=== PATIENT | male | born 1960 | race African-American/Black ===

== ENCOUNTER 2019-09-21 16:52 | Emergency (ER) | payer SELFPAY, OTHER ==
[2019-09-22 14:06] LABS: SARS-CoV-2 MS2 Positive; SARS-CoV-2 N Gene Positive; SARS-CoV-2 S Gene Positive; SARS-CoV-2 orf1ab Positive
== END 2019-09-21 17:14 | disposition home or self-care (01) ==
LOC: ERS 16:52
DX: U07.1 COVID-19 (principal); R50.9 Fever, unspecified
CPT/HCPCS: 87635; 99283; U0003

== ENCOUNTER 2019-09-25 19:08 | Emergency (ER) | payer OTHER, SELFPAY ==
[~2019-09-25 19:08] MED LIST: Iopamidol-370 76% 500 ML 1 ML ONE
--- NOTE | 2019-09-25 20:14 | RAD ---
PORTABLE CHEST ONE VIEW: 09/25/19 at 7:23 p.m. HISTORY: Chest pain. FINDINGS: Comparison made with exam of 09/22/15. The heart size is normal. No focal areas of consolidation, pneumothoraces, or pleural effusions are s een. IMPRESSION: No acute process. POS: [facility]
[2019-09-25 20:23] LABS: #Lymphocytes 1.4 thou/uL (1.20-3.40); #Monocytes 0.6 thou/uL (0.11-0.59); #Neutrophils 5.6 thou/uL (1.40-6.50); %Basophils 0.4 % (0.0-1.0); %Eosinophils 0.1 % (0.0-10.0); %Lymphocytes 18.6 % (21.0-51.0); %Monocytes 7.7 % (0.0-10.0); %Neutrophils 73.2 % (42.0-75.0); Hemoglobin 16.4 g/dL (14.0-18.0); Mean Corpuscular HGB CONC 32.9 g/dL (32.0-36.0); Mean Corpuscular Hemoglobin 28.4 pg (27.0-31.0); Mean Corpuscular Volume 86.2 fL (78.0-98.0); RBC Distribution Width 12.2 % (11.5-14.5); Red Blood Cell (RBC) Count 5.78 mill/uL (4.70-6.10); White Blood Cell (WBC) Count 7.6 thou/uL (4.8-10.8)
[2019-09-25] MEDS ORDERED: Acetaminophen 500 MG TAB ONE (20:28)
[2019-09-25] MEDS ORDERED: Morphine 4 MG/ML VIAL ONE (20:28)
[2019-09-25] MEDS ORDERED: Ketorolac Tromethamine 30 MG/ML VIAL ONE (20:28)
[2019-09-25 20:37] LABS: ALT (SGPT) 40 U/L (8-55); AST (SGOT) 43 U/L (5-34); Albumin 3.8 g/dL (3.5-5.0); Alkaline Phosphatase 62 U/L (40-110); Anion Gap 13 mmol/L (10-20); BUN (Urea Nitrogen) 9 mg/dL (8.4-25.7); Bilirubin, Total 0.8 mg/dL (0.2-1.2); Calc. Creatinine Clearance 0 mL/min (70-130); Calcium 8.5 mg/dL (7.8-10.44); Carbon Dioxide 25 mmol/L (22-29); Chloride 101 mmol/L (98-107); Estimated GFR-MDRD Greater than 90; Globulin 4.1 g/dL (2.4-3.5); Glucose 105 mg/dL (70-105); Lipase 23 U/L (8-78); Potassium 3.8 mmol/L (3.5-5.1); Protein, Total 7.9 g/dL (6.0-8.3); Sodium 135 mmol/L (136-145)
[2019-09-25 20:43] LABS: Platelet Count 118 thou/uL (130-400); Platelet Morphology Comment Appears Decreased
[2019-09-25 21:03] LABS: CKMB 0.2 ng/mL (0-6.6)
--- NOTE | 2019-09-25 21:19 | CT ---
CT Abdomen Pelvis W Con HISTORY: Right lower quadrant abdominal pain and fever.COVID-19 Positive FINDINGS: There are dependent changes in the lung bases. No calcified gallstones are seen. The liver, spleen, p ancreas, adrenal glands and kidneys are normal. A small hiatal hernia is present. No free air, free fluid or lymphadenopathy seen in the abdomen or pelvis. There are vascular calcific ations without evidence of aneurysmal dilatation of the abdominal aorta. There are degenerative changes in the spine. The small bowel loops are not abnormally dilated. A normal-appearing appendix is present. There are s mall bilateral fat-containing inguinal hernia. A small fat-containing umbilical hernia is also seen. IMPRESSION: No evidence of acute process.
[2019-09-25 22:46] LABS: Troponin I Less than 0.010 ng/mL (< 0.028)
== END 2019-09-25 23:25 | disposition home or self-care (01) ==
LOC: ERS 19:08
DX: U07.1 COVID-19 (principal); R07.9 Chest pain, unspecified; R10.813 Right lower quadrant abdominal tenderness
CPT/HCPCS: 36415; 71045; 74177; 80053; 82553; 83605; 83690; 84484; 85025; 93005; 96361; 96374; 96375; J1885; J2270; Q9967

== ENCOUNTER 2019-10-07 12:37 | Emergency (ER) | payer OTHER, SELFPAY | END 2019-10-07 13:33 | disposition home or self-care (01) | LOC: ERS 12:37 | DX: U07.1 COVID-19 (principal) | CPT/HCPCS: 99282 ==

== ENCOUNTER 2020-07-03 17:16 | Emergency (ER) | payer OTHER, SELFPAY ==
[2020-07-03] MEDS ORDERED: Proparacaine 0.5% Opth 15 ML BOT ONE (17:41)
[2020-07-03] MEDS ORDERED: Fluorescein Opthalmic Strip ONE (17:42)
[2020-07-03] MEDS ORDERED: HYDROcodone/Acetaminophen 7.5/325 mg Tablet ONE (18:06)
[2020-07-03] MEDS ORDERED: Boostrix 0.5 ML (Tdap) VIAL ONE (18:07)
== END 2020-07-03 18:40 | disposition home or self-care (01) ==
LOC: ERS 17:16
DX: S05.01XA Injury of conjunctiva and corneal abrasion without foreign body, right eye, initial encounter (principal); I10 Essential (primary) hypertension; Z23 Encounter for immunization; W50.0XXA Accidental hit or strike by another person, initial encounter
CPT/HCPCS: 90471; 90715

== ENCOUNTER 2021-02-25 10:15 | Emergency (ER) | payer SELFPAY ==
[2021-02-25 11:52] LABS: Hemoglobin 16.8 g/dL (14.0-18.0); Mean Corpuscular HGB CONC 32.5 g/dL (32.0-36.0); Mean Corpuscular Hemoglobin 29.1 pg (27.0-31.0); Mean Corpuscular Volume 89.5 fL (78.0-98.0); Platelet Count 145 thou/uL (130-400); RBC Distribution Width 12.6 % (11.5-14.5); Red Blood Cell (RBC) Count 5.78 mill/uL (4.70-6.10); White Blood Cell (WBC) Count 10.9 thou/uL (4.8-10.8)
[2021-02-25 11:53] LABS: #Eosinphils 0.1 thou/uL (0.0-0.7); #Lymphocytes 2.8 thou/uL (1.20-3.40); #Monocytes 0.9 thou/uL (0.11-0.59); #Neutrophils 7.1 thou/uL (1.40-6.50); %Basophils 0.4 % (0.0-1.0); %Eosinophils 0.6 % (0.0-10.0); %Monocytes 7.9 % (0.0-10.0); %Neutrophils 65.2 % (42.0-75.0)
[2021-02-25 12:16] LABS: Platelet Morphology Comment Appears Adequate; RBC Morphology Normal
[2021-02-25 12:18] LABS: ALT (SGPT) 33 U/L (8-55); AST (SGOT) 26 U/L (5-34); Alkaline Phosphatase 66 U/L (40-110); Anion Gap 12 mmol/L (10-20); BUN (Urea Nitrogen) 11 mg/dL (8.4-25.7); Bilirubin, Total 1.2 mg/dL (0.2-1.2); Calc. Creatinine Clearance 0 mL/min (70-130); Calcium 9.8 mg/dL (7.8-10.44); Carbon Dioxide 28 mmol/L (22-29); Chloride 103 mmol/L (98-107); Globulin 4.3 g/dL (2.4-3.5); Glucose 109 mg/dL (70-105); Lipase 56 U/L (8-78); Protein, Total 8.3 g/dL (6.0-8.3); Sodium 139 mmol/L (136-145)
[2021-02-25] MEDS ORDERED: Ketorolac Tromethamine 30 MG/ML VIAL ONE (12:32)
== END 2021-02-25 12:54 | disposition home or self-care (01) ==
LOC: ERS 10:15
DX: K43.9 Ventral hernia without obstruction or gangrene (principal); I10 Essential (primary) hypertension
CPT/HCPCS: 80053; 83690; 85025; 96374; J1885

== ENCOUNTER 2021-10-11 06:45 | Emergency (ER) | payer SELFPAY ==
[2021-10-11 08:08] LABS: #Eosinphils 0.2 thou/uL (0.0-0.7); #Lymphocytes 2.3 thou/uL (1.20-3.40); #Monocytes 0.9 thou/uL (0.11-0.59); #Neutrophils 2.9 thou/uL (1.40-6.50); %Basophils 0.3 % (0.0-1.0); %Eosinophils 2.5 % (0.0-10.0); %Lymphocytes 36.8 % (21.0-51.0); %Monocytes 14.7 % (0.0-10.0); %Neutrophils 45.7 % (42.0-75.0); Mean Corpuscular HGB CONC 32.2 g/dL (32.0-36.0); Mean Corpuscular Hemoglobin 29.4 pg (27.0-31.0); Mean Corpuscular Volume 91.2 fL (78.0-98.0); Mean Platelet Volume 8.9 fL (7.4-10.4); Platelet Count 138 thou/uL (130-400); RBC Distribution Width 12.3 % (11.5-14.5); Red Blood Cell (RBC) Count 5.77 mill/uL (4.70-6.10); White Blood Cell (WBC) Count 6.3 thou/uL (4.8-10.8)
[2021-10-11 08:36] LABS: ALT (SGPT) 43 U/L (8-55); AST (SGOT) 43 U/L (5-34); Albumin 3.8 g/dL (3.5-5.0); Alkaline Phosphatase 75 U/L (40-110); Anion Gap 14 mmol/L (10-20); BUN (Urea Nitrogen) 12 mg/dL (8.4-25.7); Bilirubin, Total 0.5 mg/dL (0.2-1.2); Calc. Creatinine Clearance 0 mL/min (70-130); Calcium 8.9 mg/dL (7.8-10.44); Carbon Dioxide 20 mmol/L (22-29); Chloride 108 mmol/L (98-107); Globulin 3.9 g/dL (2.4-3.5); Glucose 104 mg/dL (70-105); Lipase 39 U/L (8-78); Potassium 3.9 mmol/L (3.5-5.1); Protein, Total 7.7 g/dL (6.0-8.3); Sodium 138 mmol/L (136-145)
== END 2021-10-11 09:59 | disposition home or self-care (01) ==
LOC: ERS 06:45
DX: R10.13 Epigastric pain (principal); I10 Essential (primary) hypertension
CPT/HCPCS: 36415; 71045; 80053; 83690; 84484; 85025; 93005

== ENCOUNTER 2022-11-11 14:22 | Emergency (ER) | payer SELFPAY ==
[2022-11-11] MEDS ORDERED: predniSONE 20 MG TAB ONE (15:16)
[2022-11-11] MEDS ORDERED: Ibuprofen 800 MG TAB ONE (15:16)
[2022-11-11] MEDS ORDERED: Cyclobenzaprine 10 MG TAB ONE (15:16)
== END 2022-11-11 17:43 | disposition home or self-care (01) ==
LOC: ERS 14:22
DX: M54.6 Pain in thoracic spine (principal); I10 Essential (primary) hypertension
CPT/HCPCS: 72072; J7512

== ENCOUNTER 2022-12-09 18:49 | Emergency (ER) | payer OTHER, SELFPAY ==
[2022-12-09 19:31] LABS: #Eosinphils 0.1 thou/uL (0.0-0.7); #Monocytes 0.6 thou/uL (0.11-0.59); #Neutrophils 5.8 thou/uL (1.40-6.50); %Basophils 0.3 % (0.0-1.0); %Eosinophils 0.8 % (0.0-10.0); %Lymphocytes 31.9 % (21.0-51.0); %Monocytes 6.3 % (0.0-10.0); %Neutrophils 60.4 % (42.0-75.0); Hematocrit 45.2 % (42.0-52.0); Hemoglobin 14.9 g/dL (14.0-18.0); Mean Corpuscular Volume 88.1 fl (78.0-98.0); Mean Platelet Volume 10.9 fL (7.4-10.4); Platelet Count 153 10x3/uL (130-400); RBC Distribution Width 13.1 % (11.5-14.5); Red Blood Cell (RBC) Count 5.13 mill/uL (4.70-6.10); White Blood Cell (WBC) Count 9.6 10x3/uL (4.8-10.8)
[2022-12-09 19:56] LABS: Acetaminophen Less than 10 mcg/mL (10.0-30.0); Alcohol 142.1 mg/dL (Less than 10); Lipase 37 U/L (8-78); Salicylate Less than 8.0 mg/dL (15.0-30.0)
[2022-12-09 19:58] LABS: ALT (SGPT) 34 U/L (8-55); AST (SGOT) 34 U/L (5-34); Albumin 3.8 g/dL (3.4-4.8); Alkaline Phosphatase 66 U/L (40-110); Anion Gap 15 mmol/L (10-20); BUN (Urea Nitrogen) 13 mg/dL (8.4-25.7); Bilirubin, Total 0.3 mg/dL (0.2-1.2); Calc. Creatinine Clearance 0 mL/min (70-130); Calcium 8.8 mg/dL (7.8-10.44); Carbon Dioxide 21 mmol/L (23-31); Chloride 105 mmol/L (98-107); Estimated GFR 87; Globulin 3.3 g/dL (2.4-3.5); Glucose 130 mg/dL (80-115); Potassium 3.5 mmol/L (3.5-5.1); Protein, Total 7.1 g/dL (5.8-8.1); Sodium 137 mmol/L (136-145)
[2022-12-09] MEDS ORDERED: Ondansetron ODT 4 MG TAB ONE (19:59)
[2022-12-09 20:00] LABS: Troponin I Less than 0.010 ng/mL (< 0.028)
== END 2022-12-09 21:29 | disposition home or self-care (01) ==
LOC: ERS 18:49
DX: R11.10 Vomiting, unspecified (principal); F10.129 Alcohol abuse with intoxication, unspecified; I10 Essential (primary) hypertension; Y90.6 Blood alcohol level of 120-199 mg/100 ml
CPT/HCPCS: 36415; 70450; 71045; 80053; 80307; 83690; 84484; 85025; 93005; Q0162